=== PATIENT | female | born 1975 | race Caucasian/White ===

== ENCOUNTER → 2020-08-21 08:19 | Outpatient (CLI) | payer OTHER, SELFPAY ==
[2020-08-21 19:41] LABS: SARS-CoV-2 RNA PCR Positive
== END ==
PROVIDERS: PCP Internal Medicine; Visit Provider Internal Medicine
DX: U07.1 COVID-19 (principal)
CPT/HCPCS: C9803; U0003; U0005

== ENCOUNTER 2024-06-24 08:52 | Emergency (ER) | payer OTHER, SELFPAY ==
[2024-06-24 08:58] VITALS: BP 122/67; PULSE 94; RESP 16; TEMP 37.1; O2SAT 100
--- NOTE | 2024-06-24 09:25 | ED.URI ---
HPI - URI/Sore Throat General Chief Complaint: Upper Respiratory Infection Stated Complaint: Sinus/Cough/Fever Time Seen by Provider: 06/24/24 09:25 Source: patient Mode of arrival: ambulatory Limitations: no limitations History of Present Illness HPI Narrative: 48 yo F presents with c/o cough, congestion , sore throat for 2 to 3 days. FEver 102 to 103 F. Take tylenol to treat symptoms. both children currently on abx for strep throat. 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 No CP or SOB. Was seen at another yesterday and told she had too many allergies to treat . All systems reviewed and negative except as noted above. Related Data Home Medications ?Medication ?Instructions ?Recorded ?Confirmed ?Last Taken ?Type allopurinol 100 mg tablet 100 mg PO DAILY 01/19/23 06/24/24 Unknown History bupropion HCl 300 mg 24 hr tablet, 300 mg PO QAM 01/19/23 06/24/24 Unknown History extended release epinephrine 0.3 mg/0.3 mL 0.3 mg IM ONCE 01/19/23 06/24/24 Unknown History injection, auto-injector (Auvi-Q) levothyroxine 25 mcg capsule 25 mcg PO DAILY 01/19/23 06/24/24 Unknown History lisinopril 10 mg tablet 10 mg PO DAILY 01/19/23 06/24/24 Unknown History celecoxib 200 mg capsule mg PO 01/31/24 01/31/24 Unknown History tirzepatide 5 mg/0.5 mL mg subcut 01/31/24 01/31/24 Unknown History subcutaneous pen injector (Mounjaro) Allergies Allergy/AdvReac Type Severity Reaction Status Date / Time lidocaine Allergy Severe Hives Verified 06/24/24 09:09 shellfish derived Allergy Severe UNK Verified 06/24/24 09:09 sumatriptan Allergy Severe Vomiting Verified 06/24/24 09:09 tetracycline Allergy Severe Rash Verified 06/24/24 09:09 latex Allergy Intermediate Blister Verified 06/24/24 09:09 ibuprofen AdvReac Intermediate stomach Verified 06/24/24 09:09 spasms/gerd Review of Systems Review of Systems: CONSTITUTIONAL: Reports fever, chills, or sweats. EYES: Denies visual changes, redness, or discharge. ENT: reports rhinorrhea, congestion, sore throat. Denies otalgia. CARDIOVASCULAR: Denies chest pain, palpitations, or edema. RESPIRATORY: reports cough. Denies dyspnea. GASTROINTESTINAL: Denies abdominal pain, nausea, vomiting, or diarrhea. GENITOURINARY: Denies dysuria or hematuria. SKIN: Denies rash or itching. MUSCULOSKELETAL: Denies back pain, joint pain, or myalgia. NEUROLOGIC: Denies headache, numbness, or weakness. PSYCHIATRIC: Denies anxiety or depression. All other systems reviewed are negative, except as documented in HPI. PMFSH Past Medical History Medical History Anxiety Diabetes FHx: cholecystectomy High blood pressure PCOS (polycystic ovarian syndrome) Surgical History Surgical History Delivery by section H/O knee surgery H/O: hysterectomy with bladder sling Family History Family History Mother Breast cancer, Onset Age: 44 Heart disease Hypertension Other Alzheimer disease Social History Social History Smoking status: Never smoker Alcohol intake: current Substance use: never Substance use type: does not use Lack of Transportation: No Lack of Food: Never True Current Housing: I Have Housing Concerned About Future Housing: No Difficulty Paying Gas/Electric Bills: No Difficulty Paying for Meds: No Currently Unemployed: No Education: Master's Degree or Higher Difficulty w/ Childcare or Family Care: No Living arrangements: with family Occupation/Education: occupation Gender identity (if verbalized by the patient): Female Sexual Orientation (if Verbalized by the Patient): Straight or Heterosexual Comments At time of signature, agree with nursing past medical, surgical, social and family history. There is no relevant family history pertinent to the presenting complaint. Exam Narrative: GENERAL: This is a well-nourished, well-developed patient, Ill-appearing but no acute distress. HEAD: normocephalic, atraumatic. EYES: PERRL. Sclera clear/white. Vision is grossly intact. EARS: External ears normal, auditory canals clear and without drainage, TMs normal without perforation. Hearing grossly intact. NOSE: External nose normal with no obvious nasal discharge, nares without redness, no rhinorrhea. THROAT: Mucous membranes moist, erythematous with mild swelling. No exudates. Tonsils 1+ bilaterally. NECK: Neck supple, non-tender without lymphadenopathy, masses or thyromegaly. CARDIOVASCULAR: Regular rate and rhythm without murmurs, gallops, or rubs. RESPIRATORY: Clear to auscultation. Breath sounds equal bilaterally. No wheezes, rales, or rhonchi. SKIN: warm, Dry, intact with no suspicious lesions or rash, good texture and turgor. NEURO: awake, alert, and oriented to person, place and time. There were no obvious focal neurologic abnormalities. EXTREMITIES: No joint tenderness, effusion, or edema noted. Course Course Level of Care: Express Care Visit Vital Signs Vital signs: Vital Signs Temperature 37.1 C 06/24/24 08:58 Pulse Rate 94 06/24/24 08:58 Respiratory Rate 16 06/24/24 08:58 Blood Pressure 122/67 06/24/24 08:58 Pulse Oximetry 100 06/24/24 08:58 Oxygen Delivery Room Air 06/24/24 08:58 Temperature 37.1 C 06/24/24 08:58 Pulse Rate 94 06/24/24 08:58 Respiratory Rate 16 06/24/24 08:58 Blood Pressure 122/67 06/24/24 08:58 Pulse Oximetry 100 06/24/24 08:58 Oxygen Delivery Room Air 06/24/24 08:58 Reviewed MDM - URI/Sore Throat MDM Narrative Medical decision making narrative: Patient is aware of diagnosis, understands and agrees to treatment plan. Anticipatory guidance given. Patient agrees to follow-up as directed and is aware of reasons to seek care at the emergency department. Portions of this record may have been created with voice recognition software negative strep. Will treat patient for strep throat to to patient's symptoms and recent exposure. Patient agrees with plan of care. Patient well-appearing, nontoxic. History of of asthma. Will prescribe prednisone. Using albuterol inhaler as needed at home. Differential Diagnosis Differential diagnosis: Likely upper respiratory infection, sinusitis, viral infection, bronchitis and pharyngitis Lab Data Labs: Lab Results 06/24/24 Range/Units 09:30 POC Grp A Strep Screen Negative (Negative) Discharge Plan Discharge Clinical Impression: Upper respiratory infection, Exposure to strep throat Patient Disposition: Home, Self-Care Condition: Stable Instructions: Antibiotic Form Additional Instructions: your strep test was negative today. Due to your symptoms and recent strep exposure I am prescribing an antibiotic today. Take antibiotic as prescribed until gone. Change toothbrush after taking antibiotic for 24 hours. Continue taking [id number] medication to treat her symptoms such as DayQuil NyQuil cold and flu. Drink at least 64 oz of water a day. Follow-up with your primary care physician if symptoms are not improving. Patient Language: [place]i Prescriptions: New prednisone 20 mg tablet 40 mg PO DAILY 5 Days Qty: 10 0RF amoxicillin 500 mg tablet 500 mg PO Q12H 10 Days Qty: 20 0RF No Action lisinopril 10 mg tablet 10 mg PO DAILY allopurinol 100 mg tablet 100 mg PO DAILY bupropion HCl 300 mg tablet extended release 24 hr 300 mg PO QAM epinephrine [Auvi-Q] 0.3 mg/0.3 mL auto-injector 0.3 mg IM ONCE Rx Instructions: as a single dose; may repeat once levothyroxine 25 mcg capsule 25 mcg PO DAILY clobetasol 0.05 % cream 1 applic topical BID 7 Days Qty: 60 2RF Rx Instructions: followed by daily x 1 week, then 1-3x/week or PRN Mounjaro 5 mg/0.5 mL pen injector subcut celecoxib 200 mg capsule PO Follow-up/Referrals: Christianne,Reji Burciaga MD [Primary Care Provider] - Time of Disposition: 09:40
[2024-06-24 09:58] LABS: EDSTREPNEGPOS1 Negative (Negative)
== END 2024-06-24 09:50 | disposition home or self-care (01) ==
PROVIDERS: Emergency Provider Nurse Practitioner Family; PCP Internal Medicine
DX: J06.9 Acute upper respiratory infection, unspecified (principal); E11.9 Type 2 diabetes mellitus without complications; Z79.899 Other long term (current) drug therapy; Z90.49 Acquired absence of other specified parts of digestive tract
CPT/HCPCS: 87081; 87880; 99213; G0463